=== PATIENT | female | born 1930 | race Caucasian/White ===

== ENCOUNTER 2016-06-27 16:30 | Inpatient (IN) | payer MEDICARE, BC ==
[2016-06-27 16:47] VITALS: BP 137/71
--- NOTE | 2016-06-27 17:18 | ED Physician Chart ---
Chief Complaint/HPI - Patient Information Date Seen:: 06/27/16 Time Seen:: 17:07 Chief Complaint:: NEAR SYNCOPE WITH FALL. COUGH AND DIZZINESS. History of Present Illness:: This 86-year-old female presents with a cough for 1 week and dizziness today with a near syncopal episode. The patient's cough is productive of whitish phlegm and she reports no hemoptysis. Over the past week she has had intermittent fever and chills with no diaphoresis. She is equivocal on whether or not she is having shortness of breath at the present time. She denies any chest pain or abdominal pain. No nausea, vomiting or diarrhea. Allergies:: Allergies Allergy/AdvReac Type Severity Reaction Status Date / Time No Known Allergies Allergy Verified 06/27/16 16:46 Vitals:: Vital Signs - 8 hr 06/27/16 06/27/16 16:47 16:53 Temp 100.4 F HR 72 RR 17 BP 137/71 153/77 O2 Sat % 96 Review of Systems - Review of Systems General/Constitutional: Fever, Chills, Weakness ( the weakness is described as generalized.), No diaphoresis, No loss of appetite Skin: No skin lesions, No rash Head: No headache (no recent head injury.), Light headed Eyes: No loss of vision, No diplopia, Other (patient says she wears reading glasses. 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 There was no. 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 Sclera are not icteric. Skin: No rash, No skin lesions, No ecchymosis, Well hydrated ENMT: External ears, nose nl, TM canals nl, Nasal exam nl, Lips, teeth, gums nl , Oropharynx nl, Tonsils nl Neck: Nontender, Full ROM w/o pain, No JVD, No nuchal rigidity, No mass, No stridor Respiratory: Nl effort/Exclusion (the patient has decreased breath sounds throughout with scattered expiratory wheezing. No rales or rhonchi were appreciated.) Other Respiratory comments:: Patient has decreased lung sounds throughout with scattered expiratory wheezing. Cardio Vascular: RRR, No murmur, gallop, rubs, NL S1 S2 Other Cardio Vascular comments:: Good pulses in all 4 extremities. GI: No tenderness/rebounding/guarding, No organomegaly, No hernia, Normal BS's, Nondistended, No mass/bruits, No McBurney tenderness Other GI comments:: Rectal examination deferred at my discretion. : No CVA tenderness Extremities: No tenderness or effusion, Full ROM, normal strength in all extremities, No edema Neuro/Psych: Alert/oriented, DTR's symmetric, Normal sensory exam, Normal motor strength, Judgement/insight normal, Mood normal Other Neuro/Psych comments:: Patient was not ambulated due to the prior near syncopal episode. Labs/Radiology/EKG Results - Lab Results Results: Laboratory Tests 06/27/16 06/27/16 06/27/16 17:52 17:52 18:21 WBC 18.9 H D RBC 4.11 Hgb 12.0 Hct 34.9 L MCV 84.9 MCH 29.2 MCHC Differential 34.4 RDW 13.3 Plt Count 229 MPV 7.3 Neutrophils % Lymphocytes % Monocytes % Eosinophils % Basophils % Neutrophils (Manual) 84 H Lymphocytes 10 L Monocytes 6 Platelet Estimate ADEQUATE Platelet Morphology NORMAL RBC Morph Micro Appear NORMAL Sodium 133 L Potassium 3.5 Chloride 101 Carbon Dioxide 23.6 Anion Gap 11.9 BUN 19 Creatinine 1.3 H Est GFR ( Amer) TNP Est GFR (Non-Af Amer) TNP BUN/Creatinine Ratio 14.6 Glucose 144 H Hemoglobin A1c % Whole Bld Lactic Acid 1.44 Calcium 8.9 Magnesium Total Bilirubin 0.9 AST 21 ALT 20 Alkaline Phosphatase 48 Ammonia B-Natriuretic Peptide Total Protein 7.0 Albumin 3.7 Globulin 3.3 Albumin/Globulin Ratio 1.1 TSH Urine Source Urine Color Urine Clarity Urine pH Ur Specific Abbott Urine Protein Urine Glucose (UA) Urine Ketones Urine Blood Urine Nitrate Urine Bilirubin Urine Urobilinogen Ur Leukocyte Esterase Urine RBC Urine WBC Ur Epithelial Cells Urine Bacteria Laboratory interpretation: the patient has a marked leukocytosis of 19.8 which was suggestive of acute infection. There was no associated anemia and thrombocytopenia. Electrolytes were within normal parameters except for mild hyponatremia 133. renal function was normal. There was a mild to moderate elevation of the serum glucose in the 140 range. A serum lactic acid level of 1.44 argues against severe sepsis. Single view chest x-ray: no cardiomegaly or CHF. No pneumothorax. No pleural effusion. I did not appreciate any pulmonary infiltrates or regions of consolidation. Subsequent radiology report reported a possible infiltrate us in the right lower lungs on. This did not correspond to any rails or ronchi in the right lower Long zone. EKG INTERPRETATION: In normal sinus rhythm at a rate of 72. Normal NH interval. Normal QR religious. No prolongation of the QT interval. The QRS axis is normal. No Q waves. No ST depression or elevation. Nonspecific flattening of the T waves in the precordial leads. Impression: abnormal EKG. 06/27/16 06/28/16 06/28/16 21:15 04:51 04:51 WBC 13.6 H D RBC 3.90 Hgb 11.3 L Hct 33.3 L MCV 85.2 MCH 29.0 MCHC Differential 34.0 RDW 13.3 Plt Count 193 MPV 7.6 Neutrophils % 84.2 H Lymphocytes % 8.2 L Monocytes % 6.4 Eosinophils % 1.0 Basophils % 0.2 Neutrophils (Manual) Lymphocytes Monocytes Platelet Estimate Platelet Morphology RBC Morph Micro Appear Sodium 139 Potassium 3.2 L Chloride 110 H Carbon Dioxide 24.1 Anion Gap 8.1 BUN 13 Creatinine 0.9 Est GFR ( Amer) TNP Est GFR (Non-Af Amer) TNP BUN/Creatinine Ratio 14.4 Glucose 131 H Hemoglobin A1c % Whole Bld Lactic Acid Calcium 8.4 L Magnesium 2.0 Total Bilirubin AST ALT Alkaline Phosphatase Ammonia B-Natriuretic Peptide Total Protein Albumin Globulin Albumin/Globulin Ratio TSH Urine Source CLEAN C Urine Color YELLOW Urine Clarity CLEAR Urine pH 7.0 Ur Specific Abbott 1.010 Urine Protein NEGATIVE Urine Glucose (UA) NEGATIVE Urine Ketones NEGATIVE Urine Blood NEGATIVE Urine Nitrate NEGATIVE Urine Bilirubin NEGATIVE Urine Urobilinogen 0.2 Ur Leukocyte Esterase NEGATIVE Urine RBC NONE SEEN Urine WBC 0-2 Ur Epithelial Cells RARE Urine Bacteria NONE SEEN 06/28/16 06/28/16 04:51 04:51 WBC RBC Hgb Hct MCV MCH MCHC Differential RDW Plt Count MPV Neutrophils % Lymphocytes % Monocytes % Eosinophils % Basophils % Neutrophils (Manual) Lymphocytes Monocytes Platelet Estimate Platelet Morphology RBC Morph Micro Appear Sodium Potassium Chloride Carbon Dioxide Anion Gap BUN Creatinine Est GFR ( Amer) Est GFR (Non-Af Amer) BUN/Creatinine Ratio Glucose Hemoglobin A1c % 6.1 H Whole Bld Lactic Acid Calcium Magnesium Total Bilirubin AST ALT Alkaline Phosphatase Ammonia 40 B-Natriuretic Peptide 119.0 H Total Protein Albumin Globulin Albumin/Globulin Ratio TSH 0.64 Urine Source Urine Color Urine Clarity Urine pH Ur Specific Abbott Urine Protein Urine Glucose (UA) Urine Ketones Urine Blood Urine Nitrate Urine Bilirubin Urine Urobilinogen Ur Leukocyte Esterase Urine RBC Urine WBC Ur Epithelial Cells Urine Bacteria Assessment - Assessment General Assessment: CASE SUMMARY: this 86-year-old female who has no history of chronic disease presents with a one-week history of new onset of cough productive of white sputum. She reports having had fever and chills the day prior to admission. At the time of admission For temperature was 100.4. She reported having a near syncopal episode which caused her to fall with no injury. The episode occurred after a paroxysm of coughing. On physical examination the patient was awake and alert with no evidence of head trauma. She had prominent arcus of both eyes. The ears eyes nose and throat were otherwise unremarkable. There was no JVD present. On examination the lungs showed diffuse decreased breath sounds with occasional scattered wheezes. No rales or rhonchi were appreciated. There was no peripheral edema and no-fault neurologic deficit. Chest x-ray showed no cardiomegaly for CHF. I did not appreciate any pulmonary infiltrates or regions of consolidation. Laboratory studies showed a white count of 18.9 thousand. The other lab values were either normal or mild deviations which did not have any clinical implications. Lactic acid was in the normal range. Patient had no focal neurologic deficit. With the near syncopal episode she was treated with 2 L of normal saline to correct any insufficiency in hydration. Due to the patient 's age and somewhat bizarre presentation, I contacted Dr. Bang and he agreed to admit the patient for further observation and diagnostic testing. Admitted in stable condition. MDM DDX NEAR SYNCOPE EPISODE: NOT CVA Based on history and examination. NOT Electrolyte imbalance based on laboratory studies. NOT Heart block based on EKG findings. NOT Severe anemia due to active bleeding. This was based on history, physical examination and laboratory studies. In retrospect I suspect the patient had pneumonia which I didn't appreciate on chest x-ray. ED Septic Shock - . Is Septic Shock (SBP<90, OR Lactate>4 mmol\L) present?: No - <6hrs of presentation: Vital Signs: Vital Signs - 8 hr 06/27/16 06/27/16 16:47 16:53 Temp 100.4 F HR 72 RR 17 BP 137/71 153/77 O2 Sat % 96 Reassessment (Disposition) - Reassessment Reassessment Condition:: Improved - Diagnosis Diagnosis:: NEAR SYNCOPAL EPISODE, COUGH, LEUKOCYTOSIS. ED Discharge Plan - Patient Disposition Admit/Discharge/Transfer: Acute Care w/in this hosp
[2016-06-27] MEDS ORDERED: Sodium Chloride 0.9% 1,000 ML IV ONE ×2 (17:44→19:45)
[2016-06-27 18:05] LABS: HEMATOCRIT 34.9 % (35.0-45.0); MEAN CELL VOLUME 84.9 fl (81-100); MEAN CORPUSCULAR HEMOGLOBIN 29.2 pg (27.0-31.0); MEAN CORPUSCULAR HGB CONC 34.4 pg (28.0-36.0); MEAN PLATELET VOLUME 7.3 fl; PLATELET COUNT 229 Th/cmm (150-400); RED BLOOD COUNT 4.11 Mil/cmm (3.80-5.20); RED CELL DISTRIBUTION WIDTH 13.3 % (11.5-20.0)
[2016-06-27 18:12] LABS: WHITE BLOOD COUNT 18.9 Th/cmm (4.8-10.8)
[2016-06-27 18:15] LABS: ALB/GLOB RATIO 1.1 (1.0-1.8); ALKALINE PHOSPHATASE 48 U/L (34-104); ANION GAP 11.9 (7.0-16.0); BILIRUBIN,TOTAL 0.9 mg/dL (0.3-1.0); BUN - UREA NITROGEN 19 mg/dL (7-25); BUN/CREATININE RATIO 14.6; CALCIUM SERUM 8.9 mg/dL (8.6-10.3); CARBON DIOXIDE 23.6 mEq/L (21.0-31.0); CHLORIDE 101 mEq/L (98-107); CREATININE - SERUM 1.3 mg/dL (0.6-1.2); GLUCOSE 144 mg/dL (70-105); POTASSIUM SERUM 3.5 mEq/L (3.5-5.1); SGOT 21 U/L (13-39); SGPT/ALT 20 U/L (7-52); SODIUM SERUM 133 mEq/L (136-145)
[2016-06-27 18:28] LABS: NEUTROPHILS 84 % (40-80); PLATELET ESTIMATE ADEQUATE (NORMAL); PLATELET MORPHOLOGY NORMAL (NORMAL); TOTAL CELLS COUNTED 100
[2016-06-27] MEDS ORDERED: Ipratropium Neb 0.5 mg/2.5 mL UD HHN PRN (20:25)
--- NOTE | 2016-06-27 20:36 | Internal Medicine Prog Note ---
Internal Medicine Subjective - Subjective Patient seen and examined:: other ([id number]) Internal Medicine Objective - Results Result Diagrams: 06/27/16 17:52 06/27/16 17:52 Recent Labs: Laboratory Last Values WBC 18.9 Th/cmm (4.8-10.8) H D 06/27/16 17:52 RBC 4.11 Mil/cmm (3.80-5.20) 06/27/16 17:52 Hgb 12.0 gm/dL (11.7-16.1) 06/27/16 17:52 Hct 34.9 % (35.0-45.0) L 06/27/16 17:52 MCV 84.9 fl (81-100) 06/27/16 17:52 MCH 29.2 pg (27.0-31.0) 06/27/16 17:52 MCHC Differential 34.4 pg (28.0-36.0) 06/27/16 17:52 RDW 13.3 % (11.5-20.0) 06/27/16 17:52 Plt Count 229 Th/cmm (150-400) 06/27/16 17:52 MPV 7.3 fl 06/27/16 17:52 Neutrophils (Manual) 84 % (40-80) H 06/27/16 17:52 Lymphocytes 10 % (20-50) L 06/27/16 17:52 Monocytes 6 % (2-10) 06/27/16 17:52 Platelet Estimate ADEQUATE (NORMAL) 06/27/16 17:52 Platelet Morphology NORMAL (NORMAL) 06/27/16 17:52 RBC Morph Micro Appear NORMAL (NORMAL) 06/27/16 17:52 Sodium 133 mEq/L (136-145) L 06/27/16 17:52 Potassium 3.5 mEq/L (3.5-5.1) 06/27/16 17:52 Chloride 101 mEq/L (98-107) 06/27/16 17:52 Carbon Dioxide 23.6 mEq/L (21.0-31.0) 06/27/16 17:52 Anion Gap 11.9 (7.0-16.0) 06/27/16 17:52 BUN 19 mg/dL (7-25) 06/27/16 17:52 Creatinine 1.3 mg/dL (0.6-1.2) H 06/27/16 17:52 Est GFR ( Amer) TNP 06/27/16 17:52 Est GFR (Non-Af Amer) TNP 06/27/16 17:52 BUN/Creatinine Ratio 14.6 06/27/16 17:52 Glucose 144 mg/dL (70-105) H 06/27/16 17:52 Whole Bld Lactic Acid 1.44 mmol/L (0.60-1.99) 06/27/16 18:21 Calcium 8.9 mg/dL (8.6-10.3) 06/27/16 17:52 Total Bilirubin 0.9 mg/dL (0.3-1.0) 06/27/16 17:52 AST 21 U/L (13-39) 06/27/16 17:52 ALT 20 U/L (7-52) 06/27/16 17:52 Alkaline Phosphatase 48 U/L (34-104) 06/27/16 17:52 Total Protein 7.0 gm/dL (6.0-8.3) 06/27/16 17:52 Albumin 3.7 gm/dL (3.7-5.3) 06/27/16 17:52 Globulin 3.3 gm/dL 06/27/16 17:52 Albumin/Globulin Ratio 1.1 (1.0-1.8) 06/27/16 17:52 - Physical Exam Vitals and I&O: Vital Signs Temp 99.5 F 06/27/16 19:50 Pulse 70 06/27/16 19:50 Resp 20 06/27/16 19:50 BP 147/68 06/27/16 19:50 Pulse Ox 95 06/27/16 19:50 Intake & Output 06/27/16 06/27/16 06/28/16 06:59 18:59 06:59 Intake Total 1000 Balance 1000 Intake: Intake, IV Amount 1000 Sodium Chloride 0.9% 1, 1000 000 ml @ Wide Open IV . Q0M ONE Rx#:[id number] Active Medications: Current Medications Acetaminophen (Tylenol) 650 mg PO Q4HR PRN PRN Reason: Pain or Fever >101 Stop: 08/26/16 20:24 Albuterol Sulfate (Albuterol 2.5mg/3ml Neb Ud) 2.5 mg HHN QID JUDE Stop: 08/26/16 20:59 Ascorbic Acid (Vitamin C) 500 mg PO DAILY [facility] Stop: 08/27/16 08:59 Clonidine HCl (Catapres) 0.1 mg PO Q6HR PRN PRN Reason: SBP GREATER THAN 160 Stop: 08/26/16 20:24 Guaifenesin (Robitussin) 200 mg PO Q4HR PRN PRN Reason: Cough or Congestion Stop: 08/26/16 20:24 Heparin Sodium (Porcine) (Heparin) 5,000 units SUBQ Q12HR JUDE Stop: 08/26/16 20:59 Sodium Chloride (Nacl 0.9%) 1,000 mls @ 999 mls/hr IV .Q1H1M ONE Stop: 06/27/16 20:45 Last Admin: 06/27/16 19:52 Dose: 999 mls/hr Cefepime HCl 1 gm/ Dextrose 50 mls @ 100 mls/hr IV Q12H [facility] Stop: 08/26/16 20:29 Dextrose/Sodium Chloride (D5-0.45ns) 1,000 mls @ 75 mls/hr IV .[id number] [facility] Stop: 08/26/16 20:29 Ipratropium [place] (Atrovent Neb 0.5mg/2.5ml) 0.5 mg IH Q2HR PRN PRN Reason: Shortness of Breath or Wheeze Stop: 08/26/16 20:24 Miscellaneous (Vitamin B Complex [Vitamin B Complex]) 1 each PO DAILY [facility] Stop: 08/27/16 08:59 Miscellaneous (Multivitamin/Iron/Folic Acid [Centrum Complete Multivit Tab]) 1 tab PO DAILY [facility] Stop: 08/27/16 08:59 Ondansetron HCl (Zofran) 4 mg IV Q8H PRN PRN Reason: Nausea / Vomiting Stop: 08/26/16 20:24 Zolpidem Tartrate (Ambien) 10 mg PO HS PRN PRN Reason: Insomnia Stop: 08/26/16 20:24 - Procedures Procedures: Procedures Procedure Code Date INJECT/INFUSE NEC 99.29 05/28/14 Internal Medicine Assmt/Plan - Assessment Assessment: fever sepsis syncope leukocytosis h low na ri
[2016-06-27] MEDS ORDERED: Albuterol Nebulizer 2.5mg/3mL HHN SCH (21:00)
[2016-06-27 21:38] LABS: URINE BILIRUBIN NEGATIVE (NEGATIVE); URINE BLOOD NEGATIVE (NEGATIVE); URINE COLOR YELLOW; URINE GLUCOSE (UA) NEGATIVE (NEGATIVE); URINE KETONE NEGATIVE (NEGATIVE); URINE PROTEIN NEGATIVE (NEGATIVE); URINE UROBILINOGEN 0.2 E.U./dL (0.2 - 1.0)
[2016-06-27 21:39] LABS: URINE BACTERIA NONE SEEN /hpf (NONE SEEN); URINE EPITHELIAL CELLS RARE /lpf (FEW); URINE RBC NONE SEEN /hpf (0-5); URINE WBC 0-2 /hpf (0-5)
[2016-06-27] MEDS: D5-0.45NS 1,000 ML IV SCH (22:00)
--- NOTE | 2016-06-27 23:47 | Admit Criteria Form ---
Admit Criteria Forms - Admit Criteria Diagnosis: SEPSIS and OTHER FEBRILE ILLNESS, W/O FOCAL INFECTION Clinical Indications for Admission to Inpatient Care ( Place 'X' for any and all applicable criteria): Admission is indicated for ANY ONE of the following (1)(2)(3)(4): [ ] I. Bacteremia [ ]II. Suspected or identified specific infection requiring hospitalization (eg, meningitis, endocarditis) [ ]III. Hemodynamic instability [ ]IV. Altered mental status [ ]V. Failure or unavailability of outpatient antimicrobial treatment [ ]. Hypoxemia [ ]VII. Seizures [ ]VIII. High-risk febrile neutropenia [ ]IX. Need for parenteral antibiotic in patient who is likely to abuse vascular access device (eg, injection drug user) [A](7) [ ]X. Temperature greater than 104.9 degrees F (40.5 degrees C) (oral) [X]XI. Inpatient admission required rather than observation care because of ANY ONE of the following: [ ]1) Specific infection identified that is too severe for outpatient treatment or observation care trial [ ]2) Metabolic disorder (eg, hypoglycemia, hyperglycemia, metabolic acidosis) that is severe or persistent [ ]3) Temperature greater than 103.1 degrees F (39.5 degrees C) ( oral) that is not responsive to observation care treatment [ ]4) IV fluid to replace significant ongoing (eg, for over 24 hours) losses (> 3 L/m2 per day) [ ]5) Supplemental oxygen or respiratory treatments for over 24 hours that is performable only in acute inpatient setting [ ]6) Parenteral nutrition regimen need that must be implemented on inpatient basis [ ]7) Strict or protective (eg, laminar flow) isolation [X]8) Other condition, treatment or monitoring requiring inpatient admission Extended stay beyond goal length of stay may be needed for(1)(3) [ ]a) Sepsis or septic shock(22) [ ]b) Positive blood cultures [ ]c) Insufficient oral intake [ ]d) High-risk febrile neutropenia(29)(30) [ ]e) Continued fever and clinical instability [ ]f) Clinically active comorbid illness (e.g,heart failure, renal failure , diabetes) The original [employer] content created by [employer] has been revised. The portions of the content which have been revised are identified through the use of italic text or in bold, and [facility] has neither reviewed nor approved the modified material. All other unmodified content is copyright [facility]. Please see references footnoted in the original [facility] 2016 Admit Criteria Met?: Yes
[2016-06-28] MEDS: guaiFENesin 200 MG/10 ML UDC PO PRN ×2 (05:03→21:59)
[2016-06-28 05:24] LABS: % BASOPHILS 0.2 % (0.0-2.0); % LYMPHOCYTES 8.2 % (20.0-50.0); % MONOCYTES 6.4 % (2.0-10.0); % NEUTROPHILS 84.2 % (40.0-80.0); HEMATOCRIT 33.3 % (35.0-45.0); HEMOGLOBIN 11.3 gm/dL (11.7-16.1); MEAN CELL VOLUME 85.2 fl (81-100); MEAN PLATELET VOLUME 7.6 fl; NEUTROPHILE ABSOLUTE 11.5 Th/cmm (1.8-8.0); PLATELET COUNT 193 Th/cmm (150-400); RED CELL DISTRIBUTION WIDTH 13.3 % (11.5-20.0)
[2016-06-28 05:31] LABS: WHITE BLOOD COUNT 13.6 Th/cmm (4.8-10.8)
[2016-06-28 05:40] LABS: ANION GAP 8.1 (7.0-16.0); BUN - UREA NITROGEN 13 mg/dL (7-25); BUN/CREATININE RATIO 14.4; CALCIUM SERUM 8.4 mg/dL (8.6-10.3); CARBON DIOXIDE 24.1 mEq/L (21.0-31.0); CHLORIDE 110 mEq/L (98-107); CREATININE - SERUM 0.9 mg/dL (0.6-1.2); GLUCOSE 131 mg/dL (70-105); POTASSIUM SERUM 3.2 mEq/L (3.5-5.1); SODIUM SERUM 139 mEq/L (136-145)
[2016-06-28 06:29] LABS: TSH 0.64 uIU/ml (0.34-5.60)
[2016-06-28] MEDS: Multivitamin Tab PO SCH (08:50)
[2016-06-28] MEDS ORDERED: MULTIVITAMIN PO SCH (09:00)
[2016-06-28] MEDS ORDERED: IRON PO SCH (09:00)
[2016-06-28] MEDS ORDERED: [UNRECOGNIZED DRUG - OTHER] PO SCH (09:00)
[2016-06-28] MEDS ORDERED: FOLIC ACID PO SCH (09:00)
[2016-06-28] MEDS ORDERED: VITAMIN B COMPLEX PO SCH (09:00)
--- NOTE | 2016-06-28 09:41 | Diagnostic Imaging Report ---
Portable chest x-ray HISTORY: Cough Allowing for portable technique in a poor inspiration, the heart size is normal. Faint density noted in the right lung base. Faint infiltrate cannot be excluded. Clinical correlation needed. No hilar or mediastinal abnormalities. Degenerative changes seen throughout the spine. IMPRESSION: 1. Faint density right lung base. Mild infiltrate is difficult to exclude. Clinical correlation needed.
[2016-06-28] MEDS: Albuterol Nebulizer 2.5mg/3mL HHN SCH ×3 (10:54→20:12)
[2016-06-28] MEDS ORDERED: Potassium Chloride 20 mEq ER Tab PO ONE (14:35)
--- NOTE | 2016-06-28 14:38 | Internal Medicine Prog Note ---
Internal Medicine Subjective - Subjective Patient seen and examined:: with staff, chart reviewed Patient is:: awake, verbal, interactive Patient Complaints of:: congestion Per staff patient is:: no adverse event, no episodes of fall, poor appetite Internal Medicine Objective - Results Result Diagrams: 06/28/16 04:51 06/28/16 04:51 Recent Labs: Laboratory Last Values WBC 13.6 Th/cmm (4.8-10.8) H D 06/28/16 04:51 RBC 3.90 Mil/cmm (3.80-5.20) 06/28/16 04:51 Hgb 11.3 gm/dL (11.7-16.1) L 06/28/16 04:51 Hct 33.3 % (35.0-45.0) L 06/28/16 04:51 MCV 85.2 fl (81-100) 06/28/16 04:51 MCH 29.0 pg (27.0-31.0) 06/28/16 04:51 MCHC Differential 34.0 pg (28.0-36.0) 06/28/16 04:51 RDW 13.3 % (11.5-20.0) 06/28/16 04:51 Plt Count 193 Th/cmm (150-400) 06/28/16 04:51 MPV 7.6 fl 06/28/16 04:51 Neutrophils % 84.2 % (40.0-80.0) H 06/28/16 04:51 Lymphocytes % 8.2 % (20.0-50.0) L 06/28/16 04:51 Monocytes % 6.4 % (2.0-10.0) 06/28/16 04:51 Eosinophils % 1.0 % (0.0-5.0) 06/28/16 04:51 Basophils % 0.2 % (0.0-2.0) 06/28/16 04:51 Neutrophils (Manual) 84 % (40-80) H 06/27/16 17:52 Lymphocytes 10 % (20-50) L 06/27/16 17:52 Monocytes 6 % (2-10) 06/27/16 17:52 Platelet Estimate ADEQUATE (NORMAL) 06/27/16 17:52 Platelet Morphology NORMAL (NORMAL) 06/27/16 17:52 RBC Morph Micro Appear NORMAL (NORMAL) 06/27/16 17:52 Sodium 139 mEq/L (136-145) 06/28/16 04:51 Potassium 3.2 mEq/L (3.5-5.1) L 06/28/16 04:51 Chloride 110 mEq/L (98-107) H 06/28/16 04:51 Carbon Dioxide 24.1 mEq/L (21.0-31.0) 06/28/16 04:51 Anion Gap 8.1 (7.0-16.0) 06/28/16 04:51 BUN 13 mg/dL (7-25) 06/28/16 04:51 Creatinine 0.9 mg/dL (0.6-1.2) 06/28/16 04:51 Est GFR ( Amer) TNP 06/28/16 04:51 Est GFR (Non-Af Amer) TNP 06/28/16 04:51 BUN/Creatinine Ratio 14.4 06/28/16 04:51 Glucose 131 mg/dL (70-105) H 06/28/16 04:51 Hemoglobin A1c % 6.1 % (4.0-6.0) H 06/28/16 04:51 Whole Bld Lactic Acid 1.44 mmol/L (0.60-1.99) 06/27/16 18:21 Calcium 8.4 mg/dL (8.6-10.3) L 06/28/16 04:51 Magnesium 2.0 mg/dL (1.9-2.7) 06/28/16 04:51 Total Bilirubin 0.9 mg/dL (0.3-1.0) 06/27/16 17:52 AST 21 U/L (13-39) 06/27/16 17:52 ALT 20 U/L (7-52) 06/27/16 17:52 Alkaline Phosphatase 48 U/L (34-104) 06/27/16 17:52 Ammonia 40 umol/L (16-53) 06/28/16 04:51 B-Natriuretic Peptide 119.0 pg/mL (5.0-100.0) H 06/28/16 04:51 Total Protein 7.0 gm/dL (6.0-8.3) 06/27/16 17:52 Albumin 3.7 gm/dL (3.7-5.3) 06/27/16 17:52 Globulin 3.3 gm/dL 06/27/16 17:52 Albumin/Globulin Ratio 1.1 (1.0-1.8) 06/27/16 17:52 TSH 0.64 uIU/ml (0.34-5.60) 06/28/16 04:51 Urine Source CLEAN C 06/27/16 21:15 Urine Color YELLOW 06/27/16 21:15 Urine Clarity CLEAR (CLEAR) 06/27/16 21:15 Urine pH 7.0 06/27/16 21:15 Ur Specific [place] 1.010 (1.005-1.030) 06/27/16 21:15 Urine Protein NEGATIVE mg/dL (NEGATIVE) 06/27/16 21:15 Urine Glucose (UA) NEGATIVE mg/dL (NEGATIVE) 06/27/16 21:15 Urine Ketones NEGATIVE mg/dL (NEGATIVE) 06/27/16 21:15 Urine Blood NEGATIVE (NEGATIVE) 06/27/16 21:15 Urine Nitrate NEGATIVE (NEGATIVE) 06/27/16 21:15 Urine Bilirubin NEGATIVE (NEGATIVE) 06/27/16 21:15 Urine Urobilinogen 0.2 E.U./dL (0.2 - 1.0) 06/27/16 21:15 Ur Leukocyte Esterase NEGATIVE (NEGATIVE) 06/27/16 21:15 Urine RBC NONE SEEN /hpf (0-5) 06/27/16 21:15 Urine WBC 0-2 /hpf (0-5) 06/27/16 21:15 Ur Epithelial Cells RARE /lpf (FEW) 06/27/16 21:15 Urine Bacteria NONE SEEN /hpf (NONE SEEN) 06/27/16 21:15 - Physical Exam Vitals and I&O: Vital Signs Temp 99.5 F 06/28/16 04:49 Pulse 65 06/28/16 14:08 Resp 18 06/28/16 14:08 BP 143/72 06/28/16 04:49 Pulse Ox 94 06/28/16 14:08 Intake & Output 06/27/16 06/28/16 06/28/16 18:59 06:59 18:59 Intake Total 1999 Balance 1999 Weight (lbs) 55.883 kg Intake: Intake, IV Amount 2000 Sodium Chloride 0.9% 1, 1000 000 ml @ 999 mls/hr IV . Q1H1M [facility] Rx#:[id number] Sodium Chloride 0.9% 1, 1000 000 ml @ Wide Open IV . Q0M [facility] Rx#:[id number] Active Medications: Current Medications Acetaminophen (Tylenol) 650 mg PO Q4HR PRN PRN Reason: Pain or Fever >101 Stop: 08/26/16 20:24 Albuterol Sulfate (Albuterol 2.5mg/3ml Neb Ud) 2.5 mg HHN QIDRT [facility] Stop: 08/26/16 20:59 Last Admin: 06/28/16 14:08 Dose: 2.5 mg Ascorbic Acid (Vitamin C) 500 mg PO DAILY [facility] Stop: 08/27/16 08:59 Last Admin: 06/28/16 08:50 Dose: 500 mg Clonidine HCl (Catapres) 0.1 mg PO Q6HR PRN PRN Reason: SBP GREATER THAN 160 Stop: 08/26/16 20:24 Guaifenesin (Robitussin) 200 mg PO Q4HR PRN PRN Reason: Cough or Congestion Stop: 08/26/16 20:24 Last Admin: 06/28/16 05:03 Dose: 200 mg Heparin Sodium (Porcine) (Heparin) 5,000 units SUBQ Q12HR [facility] Stop: 08/26/16 20:59 Last Admin: 06/28/16 08:50 Dose: 5,000 units Cefepime HCl 1 gm/ Dextrose 50 mls @ 100 mls/hr IV Q12H [facility] Stop: 08/26/16 20:59 Last Admin: 06/28/16 09:42 Dose: 100 mls/hr Dextrose/Sodium Chloride (D5-0.45ns) 1,000 mls @ 75 mls/hr IV .[id number] [facility] Stop: 08/26/16 20:29 Last Admin: 06/27/16 22:00 Dose: 75 mls/hr Ipratropium [place] (Atrovent Neb 0.5mg/2.5ml) 0.5 mg HHN Q2HR PRN PRN Reason: Shortness of Breath or Wheeze Stop: 08/26/16 20:24 Multivitamins/Vitamin C (Theragran) 1 tab PO DAILY [facility] Stop: 08/27/16 08:59 Last Admin: 06/28/16 08:50 Dose: 1 tab Ondansetron HCl (Zofran) 4 mg IV Q8H PRN PRN Reason: Nausea / Vomiting Stop: 08/26/16 20:24 Zolpidem Tartrate (Ambien) 10 mg PO HS PRN PRN Reason: Insomnia Stop: 08/26/16 20:24 General: lethargic, alert HEENT: NC/AT, PERRLA Neck: Supple, No JVD Lungs: congested, wheezing, rales Cardiovascular: RRR, Normal S1, Normal S2 Abdomen: soft non-tender, globular, positive bowel sound Extremities: excoriation Neurological: no change - Procedures Procedures: Procedures Procedure Code Date INJECT/INFUSE NEC 99.29 05/28/14 Internal Medicine Assmt/Plan - Assessment Assessment: fever sepsis syncope leukocytosis h low na ri - Plan Plan: cont on iv abx check bc and sputum check cxr correct labx dw pt , family and rn cpm Nutritional Asmnt/Malnutr-PDOC - Dietary Evaluation Malnutrition Findings (Please click <Entered> for more info): Nutritional Asmnt/Malnutrition Start: 06/28/16 12: 04 Text: Status: Complete Freq: Document 06/28/16 12:04 [facility] (Rec: 06/28/16 12:12 [facility] [id number]) Nutritional Asmnt/Malnutrition Patient General Information Nutritional Screening High Risk Screening Diagnosis Sepsis, fever, syncope (per reason for visit) Pertinent Medical Hx/Surgical Hx 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 Pt was awake and alert during time of visit; pt is a good historian . RD offered diet education but pt declined at this time. Pt appears well nourished with no signs of muscle or fat depletion. RD weighed pt via bedscale. Upward wt trend, wt gain of 6# in the last year. Pt surprised but also admits she has been snacking a lot. Current Diet Order/ Nutrition Support Low sodium Patient / S.O Can Pertinent Medications Vitamin C, Cefepime, D5-0.45 ns, Theragran, Zofran Pertinent Labs (06/28) Glucose (fasting) 131H, A1C 6.1H Nutritional Hx/Data Height 1.45 m Height (Calculated Centimeters) 144.8 Current Weight (lbs) 55.883 kg Weight (Calculated Kilograms) 55.9 Weight (Calculated Grams) 31686.6 Usual body Weight (lbs) 117 % Usual Body Weight 105 Recent Weight Change Yes Weight Status Overweight GI Symptoms GI Symptoms None Food Allergies No Cultural/Ethnic/Roman Catholic Belief No cultural preferences provided but pt reports trying to eat less meat and more salads. Usual diet at home Low fat/low sodium diet, 3 meals/day with snacks Skin Integrity/Comment: Luis 20. Skin intact. Current %PO Good (75-100%) Estimated Nutritional Goals BEE in Kcals: Using Current wt Calories/Kcals/Kg Based on CBW 56 kg with consideration of wt gain, sepsis Kcals Calculated 4923-6565 kcals/day (28-33 kcals/kg) Protein: Using Current wt Protein g/kg: Based on CBW 56 kg with consideration of wt gain, sepsis Protein Calculated 56-70 gm/day (1-1.25 gm/kg) Fluid: ml 1559-3845 ml/day (30-35 ml/kg CBW) Nutritional Problem 1. Problem Problem Overweight related to Etiology increased energy intake vs energy expenditure as evidenced by Signs/Symptoms: overwt BMI 26.7 kg/m2 and unintentional wt gain of 6#. Malnutrition Alert Is there a minimum of two criteria No selected? Query Text:Check all the applicable criteria. A minimum of two criteria are recommended for diagnosis of either severe or non-severe malnutrition. Malnutrition Related to Morbid Obesity Malnutrition related to morbid obesity No Intervention/Recommendation Comments 1. Continue with current diet. Diet and PO intake is adequate to meet estimated nutritional needs. 2. Educate on wt management, as needed. Expected Outcomes/Goals Expected Outcomes/Goals Have pt meet at least 75% of estimated nutritional needs for stable wt. Physician Parameters for PEM Serum Albumin (g/dl) 3.5 - 5.0 (Normal) 06/28/16 12:12 Dietitian Notes by Nelia Johnson Nutrition Note Initial Nutrition Assessment completed by Nelia Johnson on 06/28/16. Please refer to nutrition assessment under Patient Care tab of EMR. Nutrition Interventions: 1. Continue with current diet. Diet and PO intake is adequate to meet estimated nutritional needs. 2. Educate on wt management, as needed. F/U in 3-5 days as Moderate risk, 07/01-07/03. Initialized on 06/28/16 12:12 - END OF NOTE
[2016-06-28] MEDS: D5-0.45NS 1,000 ML IV SCH (18:19)
--- NOTE | 2016-06-29 01:14 | History & Physical ---
INTERNAL MEDICINE HISTORY AND PHYSICAL CHIEF COMPLAINT: Fainting spell and fever. HISTORY OF PRESENT ILLNESS: The patient is an 86-year-old female without significant past medical history with severe problems at house related to fever and feeling sweaty and dizzy. The patient was coughing for the last 3 days, reported subjective fever. The patient had a coughing spell this afternoon, almost fainted. The patient was brought in by family, and while in the ER, by Dr. Heller noted to have a high white count. The patient admitted for further management. PAST MEDICAL HISTORY: As mentioned in history of present illness. PAST SURGICAL HISTORY: ____ breast biopsy in the past. ALLERGIES: No known drug allergies. MEDICATIONS: She is taking vitamin C, vitamin B, as well as multivitamin. FAMILY HISTORY: Noncontributory. SOCIAL HISTORY: Nonsmoker and nondrinker. No intravenous drug use. REVIEW OF SYSTEMS: CONSTITUTIONAL: Complains of not feeling well. Complains of being weak. HEENT: Complaining of sore throat and coughing. LUNGS: Diagnosed with no COPD or asthma. HEART: Denies hypertension or coronary artery disease. The patient is noted to have elevated blood pressure in the emergency room. ABDOMEN: No nausea, vomiting or abdominal pain. GENITOURINARY: The patient denies any increased frequency or dysuria. NEUROLOGIC: The patient with loss of consciousness. PSYCHIATRIC: She has depression. PHYSICAL EXAMINATION: VITAL SIGNS: Blood pressure 115/50, respiration 16, pulse 95, and temperature 100.4. GENERAL: Elderly female who appears her stated age. NECK: Supple. LUNGS: Equal breath sounds, a few rhonchi. HEART: Regular rate and rhythm with systolic ejection murmur. ABDOMEN: Soft and nontender. EXTREMITIES: Positive excoriations. NEUROLOGIC: Limited. LABORATORY DATA: WBC 18.9, hemoglobin 12.0, and platelets 229,000. Sodium 132, potassium 3.5, BUN 19, creatinine 1.3, and blood sugar 144. ASSESSMENT AND PLAN: 1. Fever. 2. Sepsis. 3. Syncope. 4. Leukocytosis. 5. Hyponatremia. 6. Renal insufficiency/dehydration. 7. Hyperglycemia. PLAN: We will continue the patient on IV hydration. We will monitor for any signs or symptoms of fluid overload. We will follow the patient's blood cultures, sputum cultures, and C and S. We will review the patient's chest x-ray. We will correct the patient's electrolyte abnormalities. We will monitor the patient's renal function. We will check hemoglobin A1c. We will provide the patient oxygen and now bronchodilator treatment. We will check the patient's carotid as well as 2D echo. We will admit the patient to the telemetry. JOB# [id number]
[2016-06-29 06:20] LABS: % BASOPHILS 0.3 % (0.0-2.0); % EOSINOPHILS 1.7 % (0.0-5.0); % LYMPHOCYTES 10.2 % (20.0-50.0); % MONOCYTES 6.8 % (2.0-10.0); HEMATOCRIT 34.8 % (35.0-45.0); HEMOGLOBIN 11.8 gm/dL (11.7-16.1); MEAN CORPUSCULAR HGB CONC 33.8 pg (28.0-36.0); MEAN PLATELET VOLUME 7.8 fl; NEUTROPHILE ABSOLUTE 12.9 Th/cmm (1.8-8.0); PLATELET COUNT 218 Th/cmm (150-400); RED BLOOD COUNT 4.05 Mil/cmm (3.80-5.20); RED CELL DISTRIBUTION WIDTH 13.7 % (11.5-20.0); WHITE BLOOD COUNT 15.9 Th/cmm (4.8-10.8)
[2016-06-29] MEDS: guaiFENesin 200 MG/10 ML UDC PO PRN ×2 (06:26→21:24)
[2016-06-29 06:48] LABS: ANION GAP 9.9 (7.0-16.0); BUN - UREA NITROGEN 10 mg/dL (7-25); BUN/CREATININE RATIO 11.1; CALCIUM SERUM 8.9 mg/dL (8.6-10.3); CARBON DIOXIDE 24.4 mEq/L (21.0-31.0); CHLORIDE 107 mEq/L (98-107); CREATININE - SERUM 0.9 mg/dL (0.6-1.2); GLUCOSE 111 mg/dL (70-105); POTASSIUM SERUM 3.3 mEq/L (3.5-5.1); SODIUM SERUM 138 mEq/L (136-145)
[2016-06-29] MEDS: Albuterol Nebulizer 2.5mg/3mL HHN SCH ×3 (07:16→15:05)
[2016-06-29] MEDS: Multivitamin Tab PO SCH (09:11)
--- NOTE | 2016-06-29 09:17 | Diagnostic Imaging Report ---
Portable chest x-ray HISTORY: Pneumonia Compared with prior exam of June 27, 2016, exam is somewhat limited due to patient motion and underpenetration. There appears to be persistent faint density in the right lung base. Mild infiltrate cannot be excluded. Clinical correlation and follow-up recommended. IMPRESSION: 1. Suboptimal exam associated with underpenetration and patient motion 2. Suggestion of persistent faint infiltrate within the right lung base. Mild infiltrate cannot be excluded.
[2016-06-29] MEDS ORDERED: Potassium Chloride 20 mEq ER Tab PO ONE (09:21)
--- NOTE | 2016-06-29 09:23 | Diagnostic Imaging Report ---
Bilateral carotid Doppler ultrasound exam HISTORY: Syncope Sonographic sector images were obtained through the carotid bifurcation regions bilaterally. Associated Doppler data was obtained. Exam the right side demonstrates generalized intimal thickening throughout the bifurcation region. Mild focal plaque is noted in the common carotid artery. No significant narrowing or stenosis. Antegrade vertebral artery flow. Mild increase in velocity noted within the proximal common carotid artery and at the origin of the right external carotid artery. The ICC/CCA flow ratio equals 0.3). The left side demonstrates generalized intimal thickening. No significant narrowing or stenosis. Antegrade vertebral artery flow. Velocities and flow ratios are normal (ICC/CCA equals 1.4). IMPRESSION: 1. Mild atherosclerotic changes slightly greater on the right side. These do not appear to be hemodynamically significant.
--- NOTE | 2016-06-29 12:07 | Internal Medicine Prog Note ---
Internal Medicine Subjective - Subjective Service Date: 06/29/16 (awake, alert, feels congested. ) Patient seen and examined:: with staff Internal Medicine Objective - Results Result Diagrams: 06/29/16 05:50 06/29/16 05:50 Recent Labs: Laboratory Last Values WBC 15.9 Th/cmm (4.8-10.8) H 06/29/16 05:50 RBC 4.05 Mil/cmm (3.80-5.20) 06/29/16 05:50 Hgb 11.8 gm/dL (11.7-16.1) 06/29/16 05:50 Hct 34.8 % (35.0-45.0) L 06/29/16 05:50 MCV 86.0 fl (81-100) 06/29/16 05:50 MCH 29.0 pg (27.0-31.0) 06/29/16 05:50 MCHC Differential 33.8 pg (28.0-36.0) 06/29/16 05:50 RDW 13.7 % (11.5-20.0) 06/29/16 05:50 Plt Count 218 Th/cmm (150-400) 06/29/16 05:50 MPV 7.8 fl 06/29/16 05:50 Neutrophils % 81.0 % (40.0-80.0) H 06/29/16 05:50 Lymphocytes % 10.2 % (20.0-50.0) L 06/29/16 05:50 Monocytes % 6.8 % (2.0-10.0) 06/29/16 05:50 Eosinophils % 1.7 % (0.0-5.0) 06/29/16 05:50 Basophils % 0.3 % (0.0-2.0) 06/29/16 05:50 Neutrophils (Manual) 84 % (40-80) H 06/27/16 17:52 Lymphocytes 10 % (20-50) L 06/27/16 17:52 Monocytes 6 % (2-10) 06/27/16 17:52 Platelet Estimate ADEQUATE (NORMAL) 06/27/16 17:52 Platelet Morphology NORMAL (NORMAL) 06/27/16 17:52 RBC Morph Micro Appear NORMAL (NORMAL) 06/27/16 17:52 Sodium 138 mEq/L (136-145) 06/29/16 05:50 Potassium 3.3 mEq/L (3.5-5.1) L 06/29/16 05:50 Chloride 107 mEq/L (98-107) 06/29/16 05:50 Carbon Dioxide 24.4 mEq/L (21.0-31.0) 06/29/16 05:50 Anion Gap 9.9 (7.0-16.0) 06/29/16 05:50 BUN 10 mg/dL (7-25) 06/29/16 05:50 Creatinine 0.9 mg/dL (0.6-1.2) 06/29/16 05:50 Est GFR ( Amer) TNP 06/29/16 05:50 Est GFR (Non-Af Amer) TNP 06/29/16 05:50 BUN/Creatinine Ratio 11.1 06/29/16 05:50 Glucose 111 mg/dL (70-105) H 06/29/16 05:50 Hemoglobin A1c % 6.1 % (4.0-6.0) H 06/28/16 04:51 Whole Bld Lactic Acid 1.44 mmol/L (0.60-1.99) 06/27/16 18:21 Calcium 8.9 mg/dL (8.6-10.3) 06/29/16 05:50 Magnesium 2.0 mg/dL (1.9-2.7) 06/29/16 05:50 Total Bilirubin 0.9 mg/dL (0.3-1.0) 06/27/16 17:52 AST 21 U/L (13-39) 06/27/16 17:52 ALT 20 U/L (7-52) 06/27/16 17:52 Alkaline Phosphatase 48 U/L (34-104) 06/27/16 17:52 Ammonia 40 umol/L (16-53) 06/28/16 04:51 B-Natriuretic Peptide 119.0 pg/mL (5.0-100.0) H 06/28/16 04:51 Total Protein 7.0 gm/dL (6.0-8.3) 06/27/16 17:52 Albumin 3.7 gm/dL (3.7-5.3) 06/27/16 17:52 Globulin 3.3 gm/dL 06/27/16 17:52 Albumin/Globulin Ratio 1.1 (1.0-1.8) 06/27/16 17:52 TSH 0.64 uIU/ml (0.34-5.60) 06/28/16 04:51 Urine Source CLEAN C 06/27/16 21:15 Urine Color YELLOW 06/27/16 21:15 Urine Clarity CLEAR (CLEAR) 06/27/16 21:15 Urine pH 7.0 06/27/16 21:15 Ur Specific [place] 1.010 (1.005-1.030) 06/27/16 21:15 Urine Protein NEGATIVE mg/dL (NEGATIVE) 06/27/16 21:15 Urine Glucose (UA) NEGATIVE mg/dL (NEGATIVE) 06/27/16 21:15 Urine Ketones NEGATIVE mg/dL (NEGATIVE) 06/27/16 21:15 Urine Blood NEGATIVE (NEGATIVE) 06/27/16 21:15 Urine Nitrate NEGATIVE (NEGATIVE) 06/27/16 21:15 Urine Bilirubin NEGATIVE (NEGATIVE) 06/27/16 21:15 Urine Urobilinogen 0.2 E.U./dL (0.2 - 1.0) 06/27/16 21:15 Ur Leukocyte Esterase NEGATIVE (NEGATIVE) 06/27/16 21:15 Urine RBC NONE SEEN /hpf (0-5) 06/27/16 21:15 Urine WBC 0-2 /hpf (0-5) 06/27/16 21:15 Ur Epithelial Cells RARE /lpf (FEW) 06/27/16 21:15 Urine Bacteria NONE SEEN /hpf (NONE SEEN) 06/27/16 21:15 - Physical Exam Vitals and I&O: Vital Signs Temp 98.1 F 06/29/16 08:00 Pulse 70 06/29/16 10:54 Resp 16 06/29/16 10:54 BP 166/79 06/29/16 08:00 Pulse Ox 97 06/29/16 10:54 Intake & Output 06/28/16 06/29/16 06/29/16 18:59 06:59 18:59 Intake Total 1550 250 Balance 1550 250 Weight (lbs) 123 lb 3.2 oz Intake: Intake, IV Amount 1050 50 Cefepime 1 gm In Dextrose 50 50 5% 50 ml @ 100 mls/hr IV Q12H [facility] Rx#:[id number] D5-0.45NS 1,000 ml @ 75 1000 mls/hr IV .[id number] [facility] Rx #:[id number] Oral 450 200 Other 50 Other: # Voids 5 3 # Bowel Movements 0 1 Active Medications: Current Medications Acetaminophen (Tylenol) 650 mg PO Q4HR PRN PRN Reason: Pain or Fever >101 Stop: 08/26/16 20:24 Last Admin: 06/28/16 20:48 Dose: 650 mg Albuterol Sulfate (Albuterol 2.5mg/3ml Neb Ud) 2.5 mg HHN QIDRT [facility] Stop: 08/26/16 20:59 Last Admin: 06/29/16 10:52 Dose: 2.5 mg Ascorbic Acid (Vitamin C) 500 mg PO DAILY [facility] Stop: 08/27/16 08:59 Last Admin: 06/29/16 09:11 Dose: 500 mg Clonidine HCl (Catapres) 0.1 mg PO Q6HR PRN PRN Reason: SBP GREATER THAN 160 Stop: 08/26/16 20:24 Guaifenesin (Robitussin) 200 mg PO Q4HR PRN PRN Reason: Cough or Congestion Stop: 08/26/16 20:24 Last Admin: 06/29/16 06:26 Dose: 200 mg Heparin Sodium (Porcine) (Heparin) 5,000 units SUBQ Q12HR [facility] Stop: 08/26/16 20:59 Last Admin: 06/29/16 09:12 Dose: 5,000 units Cefepime HCl 1 gm/ Dextrose 50 mls @ 100 mls/hr IV Q12H [facility] Stop: 08/26/16 20:59 Last Admin: 06/29/16 09:45 Dose: 100 mls/hr Dextrose/Sodium Chloride (D5-0.45ns) 1,000 mls @ 75 mls/hr IV .[id number] [facility] Stop: 08/26/16 20:29 Last Admin: 06/28/16 18:19 Dose: 75 mls/hr Ipratropium [place] (Atrovent Neb 0.5mg/2.5ml) 0.5 mg HHN Q2HR PRN PRN Reason: Shortness of Breath or Wheeze Stop: 08/26/16 20:24 Multivitamins/Vitamin C (Theragran) 1 tab PO DAILY [facility] Stop: 08/27/16 08:59 Last Admin: 06/29/16 09:11 Dose: 1 tab Ondansetron HCl (Zofran) 4 mg IV Q8H PRN PRN Reason: Nausea / Vomiting Stop: 08/26/16 20:24 Zolpidem Tartrate (Ambien) 10 mg PO HS PRN PRN Reason: Insomnia Stop: 08/26/16 20:24 General: weak, alert HEENT: NC/AT Neck: Supple Lungs: ronchi Cardiovascular: carlie (asymptomatic, at times in the mid 40's during rest ) Abdomen: soft non-tender, non-distended - Procedures Procedures: Procedures Procedure Code Date INJECT/INFUSE NEC 99.29 05/28/14 Internal Medicine Assmt/Plan - Assessment Assessment: fever sepsis syncope leukocytosis low na ri - Plan Plan: f/u labs pt eval monitor HR tele monitoring continue ivabx bronchodilators cpm Nutritional Asmnt/Malnutr-PDOC - Dietary Evaluation Malnutrition Findings (Please click <Entered> for more info): Nutritional Asmnt/Malnutrition Start: 06/28/16 12: 04 Text: Status: Complete Freq: Document 06/28/16 12:04 [facility] (Rec: 06/28/16 12:12 [facility] [id number]) Nutritional Asmnt/Malnutrition Patient General Information Nutritional Screening High Risk Screening Diagnosis Sepsis, fever, syncope (per reason for visit) Pertinent Medical Hx/Surgical Hx 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 Pt was awake and alert during time of visit; pt is a good historian . RD offered diet education but pt declined at this time. Pt appears well nourished with no signs of muscle or fat depletion. RD weighed pt via bedscale. Upward wt trend, wt gain of 6# in the last year. Pt surprised but also admits she has been snacking a lot. Current Diet Order/ Nutrition Support Low sodium Patient / S.O Can Pertinent Medications Vitamin C, Cefepime, D5-0.45 ns, Theragran, Zofran Pertinent Labs (06/28) Glucose (fasting) 131H, A1C 6.1H Nutritional Hx/Data Height 4 ft 9 in Height (Calculated Centimeters) 144.8 Current Weight (lbs) 123 lb 3.2 oz Weight (Calculated Kilograms) 55.9 Weight (Calculated Grams) 76618.6 Usual body Weight (lbs) 117 % Usual Body Weight 105 Recent Weight Change Yes Weight Status Overweight GI Symptoms GI Symptoms None Food Allergies No Cultural/Ethnic/Buddhist Belief No cultural preferences provided but pt reports trying to eat less meat and more salads. Usual diet at home Low fat/low sodium diet, 3 meals/day with snacks Skin Integrity/Comment: Luis 20. Skin intact. Current %PO Good (75-100%) Estimated Nutritional Goals BEE in Kcals: Using Current wt Calories/Kcals/Kg Based on CBW 56 kg with consideration of wt gain, sepsis Kcals Calculated 1551-2411 kcals/day (28-33 kcals/kg) Protein: Using Current wt Protein g/kg: Based on CBW 56 kg with consideration of wt gain, sepsis Protein Calculated 56-70 gm/day (1-1.25 gm/kg) Fluid: ml 2930-9278 ml/day (30-35 ml/kg CBW) Nutritional Problem 1. Problem Problem Overweight related to Etiology increased energy intake vs energy expenditure as evidenced by Signs/Symptoms: overwt BMI 26.7 kg/m2 and unintentional wt gain of 6#. Malnutrition Alert Is there a minimum of two criteria No selected? Query Text:Check all the applicable criteria. A minimum of two criteria are recommended for diagnosis of either severe or non-severe malnutrition. Malnutrition Related to Morbid Obesity Malnutrition related to morbid obesity No Intervention/Recommendation Comments 1. Continue with current diet. Diet and PO intake is adequate to meet estimated nutritional needs. 2. Educate on wt management, as needed. Expected Outcomes/Goals Expected Outcomes/Goals Have pt meet at least 75% of estimated nutritional needs for stable wt. Physician Parameters for PEM Serum Albumin (g/dl) 3.5 - 5.0 (Normal) 06/28/16 12:12 Dietitian Notes by Nelia Johnson Nutrition Note Initial Nutrition Assessment completed by Nelia Johnson on 06/28/16. Please refer to nutrition assessment under Patient Care tab of EMR. Nutrition Interventions: 1. Continue with current diet. Diet and PO intake is adequate to meet estimated nutritional needs. 2. Educate on wt management, as needed. F/U in 3-5 days as Moderate risk, 07/01-07/03. Initialized on 06/28/16 12:12 - END OF NOTE
[2016-06-30] MEDS: D5-0.45NS 1,000 ML IV SCH (00:30)
[2016-06-30 06:13] LABS: FOLIC ACID >20.0 ng/mL (>3.0)
[2016-06-30 07:21] LABS: % BASOPHILS 0.2 % (0.0-2.0); % EOSINOPHILS 3.7 % (0.0-5.0); % LYMPHOCYTES 13.7 % (20.0-50.0); % MONOCYTES 7.6 % (2.0-10.0); % NEUTROPHILS 74.8 % (40.0-80.0); HEMATOCRIT 37.3 % (35.0-45.0); HEMOGLOBIN 12.3 gm/dL (11.7-16.1); MEAN CELL VOLUME 86.4 fl (81-100); MEAN CORPUSCULAR HEMOGLOBIN 28.5 pg (27.0-31.0); MEAN CORPUSCULAR HGB CONC 33.1 pg (28.0-36.0); MEAN PLATELET VOLUME 8.4 fl; NEUTROPHILE ABSOLUTE 8.7 Th/cmm (1.8-8.0); PLATELET COUNT 254 Th/cmm (150-400); RED BLOOD COUNT 4.32 Mil/cmm (3.80-5.20); RED CELL DISTRIBUTION WIDTH 13.6 % (11.5-20.0)
[2016-06-30 07:41] LABS: WHITE BLOOD COUNT 11.6 Th/cmm (4.8-10.8)
[2016-06-30 07:43] LABS: BUN - UREA NITROGEN 13 mg/dL (7-25); BUN/CREATININE RATIO 14.4; CALCIUM SERUM 9.4 mg/dL (8.6-10.3); CARBON DIOXIDE 25.6 mEq/L (21.0-31.0); CHLORIDE 105 mEq/L (98-107); CREATININE - SERUM 0.9 mg/dL (0.6-1.2); GLUCOSE 105 mg/dL (70-105); POTASSIUM SERUM 3.6 mEq/L (3.5-5.1); SODIUM SERUM 140 mEq/L (136-145)
[2016-06-30] MEDS: Albuterol Nebulizer 2.5mg/3mL HHN SCH ×4 (09:00→20:12)
[2016-06-30] MEDS: Multivitamin Tab PO SCH (09:41)
--- NOTE | 2016-06-30 11:39 | Internal Medicine Prog Note ---
Internal Medicine Subjective - Subjective Service Date: 06/30/16 (awake, alert, just came back from CT still noted with productive cough) Internal Medicine Objective - Results Result Diagrams: 06/30/16 06:15 06/30/16 06:15 Recent Labs: Laboratory Last Values WBC 11.6 Th/cmm (4.8-10.8) H D 06/30/16 06:15 RBC 4.32 Mil/cmm (3.80-5.20) 06/30/16 06:15 Hgb 12.3 gm/dL (11.7-16.1) 06/30/16 06:15 Hct 37.3 % (35.0-45.0) 06/30/16 06:15 MCV 86.4 fl (81-100) 06/30/16 06:15 MCH 28.5 pg (27.0-31.0) 06/30/16 06:15 MCHC Differential 33.1 pg (28.0-36.0) 06/30/16 06:15 RDW 13.6 % (11.5-20.0) 06/30/16 06:15 Plt Count 254 Th/cmm (150-400) 06/30/16 06:15 MPV 8.4 fl 06/30/16 06:15 Neutrophils % 74.8 % (40.0-80.0) 06/30/16 06:15 Lymphocytes % 13.7 % (20.0-50.0) L 06/30/16 06:15 Monocytes % 7.6 % (2.0-10.0) 06/30/16 06:15 Eosinophils % 3.7 % (0.0-5.0) 06/30/16 06:15 Basophils % 0.2 % (0.0-2.0) 06/30/16 06:15 Neutrophils (Manual) 84 % (40-80) H 06/27/16 17:52 Lymphocytes 10 % (20-50) L 06/27/16 17:52 Monocytes 6 % (2-10) 06/27/16 17:52 Platelet Estimate ADEQUATE (NORMAL) 06/27/16 17:52 Platelet Morphology NORMAL (NORMAL) 06/27/16 17:52 RBC Morph Micro Appear NORMAL (NORMAL) 06/27/16 17:52 Sodium 140 mEq/L (136-145) 06/30/16 06:15 Potassium 3.6 mEq/L (3.5-5.1) 06/30/16 06:15 Chloride 105 mEq/L (98-107) 06/30/16 06:15 Carbon Dioxide 25.6 mEq/L (21.0-31.0) 06/30/16 06:15 Anion Gap 13.0 (7.0-16.0) 06/30/16 06:15 BUN 13 mg/dL (7-25) 06/30/16 06:15 Creatinine 0.9 mg/dL (0.6-1.2) 06/30/16 06:15 Est GFR ( Amer) TNP 06/30/16 06:15 Est GFR (Non-Af Amer) TNP 06/30/16 06:15 BUN/Creatinine Ratio 14.4 06/30/16 06:15 Glucose 105 mg/dL (70-105) 06/30/16 06:15 Hemoglobin A1c % 6.1 % (4.0-6.0) H 06/28/16 04:51 Whole Bld Lactic Acid 1.44 mmol/L (0.60-1.99) 06/27/16 18:21 Calcium 9.4 mg/dL (8.6-10.3) 06/30/16 06:15 Magnesium 2.0 mg/dL (1.9-2.7) 06/29/16 05:50 Total Bilirubin 0.9 mg/dL (0.3-1.0) 06/27/16 17:52 AST 21 U/L (13-39) 06/27/16 17:52 ALT 20 U/L (7-52) 06/27/16 17:52 Alkaline Phosphatase 48 U/L (34-104) 06/27/16 17:52 Ammonia 40 umol/L (16-53) 06/28/16 04:51 B-Natriuretic Peptide 119.0 pg/mL (5.0-100.0) H 06/28/16 04:51 Total Protein 7.0 gm/dL (6.0-8.3) 06/27/16 17:52 Albumin 3.7 gm/dL (3.7-5.3) 06/27/16 17:52 Globulin 3.3 gm/dL 06/27/16 17:52 Albumin/Globulin Ratio 1.1 (1.0-1.8) 06/27/16 17:52 Vitamin B12 512 pg/mL (211-946) 06/28/16 04:51 Folic Acid >20.0 ng/mL (>3.0) 06/28/16 04:51 TSH 0.64 uIU/ml (0.34-5.60) 06/28/16 04:51 Urine Source CLEAN C 06/27/16 21:15 Urine Color YELLOW 06/27/16 21:15 Urine Clarity CLEAR (CLEAR) 06/27/16 21:15 Urine pH 7.0 06/27/16 21:15 Ur Specific [place] 1.010 (1.005-1.030) 06/27/16 21:15 Urine Protein NEGATIVE mg/dL (NEGATIVE) 06/27/16 21:15 Urine Glucose (UA) NEGATIVE mg/dL (NEGATIVE) 06/27/16 21:15 Urine Ketones NEGATIVE mg/dL (NEGATIVE) 06/27/16 21:15 Urine Blood NEGATIVE (NEGATIVE) 06/27/16 21:15 Urine Nitrate NEGATIVE (NEGATIVE) 06/27/16 21:15 Urine Bilirubin NEGATIVE (NEGATIVE) 06/27/16 21:15 Urine Urobilinogen 0.2 E.U./dL (0.2 - 1.0) 06/27/16 21:15 Ur Leukocyte Esterase NEGATIVE (NEGATIVE) 06/27/16 21:15 Urine RBC NONE SEEN /hpf (0-5) 06/27/16 21:15 Urine WBC 0-2 /hpf (0-5) 06/27/16 21:15 Ur Epithelial Cells RARE /lpf (FEW) 06/27/16 21:15 Urine Bacteria NONE SEEN /hpf (NONE SEEN) 06/27/16 21:15 - Physical Exam Vitals and I&O: Vital Signs Temp 98.2 F 06/30/16 04:00 Pulse 66 06/30/16 09:41 Resp 20 06/30/16 04:00 BP 148/62 06/30/16 09:41 Pulse Ox 97 06/30/16 04:00 Intake & Output 06/29/16 06/30/16 06/30/16 18:59 06:59 18:59 Intake Total 1770 250 Balance 1770 250 Intake: Intake, IV Amount 1050 50 Cefepime 1 gm In Dextrose 50 50 5% 50 ml @ 100 mls/hr IV Q12H [facility] Rx#:[id number] D5-0.45NS 1,000 ml @ 75 1000 mls/hr IV .[id number] [facility] Rx #:[id number] Oral 720 200 Other: # Voids 4 4 # Bowel Movements 1 Active Medications: Current Medications Acetaminophen (Tylenol) 650 mg PO Q4HR PRN PRN Reason: Pain or Fever >101 Stop: 08/26/16 20:24 Last Admin: 06/29/16 21:23 Dose: 650 mg Albuterol Sulfate (Albuterol 2.5mg/3ml Neb Ud) 2.5 mg HHN QIDRT [facility] Stop: 08/26/16 20:59 Last Admin: 06/30/16 09:00 Dose: 2.5 mg Ascorbic Acid (Vitamin C) 500 mg PO DAILY [facility] Stop: 08/27/16 08:59 Last Admin: 06/30/16 09:41 Dose: 500 mg Benazepril HCl (Lotensin) 10 mg PO BID [facility] Stop: 08/28/16 16:59 Last Admin: 06/30/16 09:41 Dose: 10 mg Clonidine HCl (Catapres) 0.1 mg PO Q6HR PRN PRN Reason: SBP GREATER THAN 160 Stop: 08/26/16 20:24 Guaifenesin (Robitussin) 200 mg PO Q4HR PRN PRN Reason: Cough or Congestion Stop: 08/26/16 20:24 Last Admin: 06/29/16 21:24 Dose: 200 mg Heparin Sodium (Porcine) (Heparin) 5,000 units SUBQ Q12HR [facility] Stop: 08/26/16 20:59 Last Admin: 06/30/16 09:43 Dose: 5,000 units Cefepime HCl 1 gm/ Dextrose 50 mls @ 100 mls/hr IV Q12H [facility] Stop: 08/26/16 20:59 Last Admin: 06/30/16 09:42 Dose: 100 mls/hr Dextrose/Sodium Chloride (D5-0.45ns) 1,000 mls @ 75 mls/hr IV .[id number] [facility] Stop: 08/26/16 20:29 Last Admin: 06/30/16 00:30 Dose: 75 mls/hr Ipratropium [place] (Atrovent Neb 0.5mg/2.5ml) 0.5 mg HHN Q2HR PRN PRN Reason: Shortness of Breath or Wheeze Stop: 08/26/16 20:24 Multivitamins/Vitamin C (Theragran) 1 tab PO DAILY [facility] Stop: 08/27/16 08:59 Last Admin: 06/30/16 09:41 Dose: 1 tab Ondansetron HCl (Zofran) 4 mg IV Q8H PRN PRN Reason: Nausea / Vomiting Stop: 08/26/16 20:24 Zolpidem Tartrate (Ambien) 10 mg PO HS PRN PRN Reason: Insomnia Stop: 08/26/16 20:24 General: alert HEENT: NC/AT, PERRLA Neck: Supple Lungs: CTAB, ronchi Cardiovascular: RRR, Normal S1, Normal S2, without murmur Abdomen: soft non-tender, non-distended Extremities: clear - Procedures Procedures: Procedures Procedure Code Date INJECT/INFUSE NEC 99.29 05/28/14 Internal Medicine Assmt/Plan - Assessment Assessment: fever sepsis syncope leukocytosis low na ri - Plan Plan: awaiting for results CT chest monitor HR tele monitoring continue ivabx bronchodilators cpm Nutritional Asmnt/Malnutr-PDOC - Dietary Evaluation Malnutrition Findings (Please click <Entered> for more info): Nutritional Asmnt/Malnutrition Start: 06/28/16 12: 04 Text: Status: Complete Freq: Document 06/28/16 12:04 [facility] (Rec: 06/28/16 12:12 [facility] [id number]) Nutritional Asmnt/Malnutrition Patient General Information Nutritional Screening High Risk Screening Diagnosis Sepsis, fever, syncope (per reason for visit) Pertinent Medical Hx/Surgical Hx 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 Pt was awake and alert during time of visit; pt is a good historian . RD offered diet education but pt declined at this time. Pt appears well nourished with no signs of muscle or fat depletion. RD weighed pt via bedscale. Upward wt trend, wt gain of 6# in the last year. Pt surprised but also admits she has been snacking a lot. Current Diet Order/ Nutrition Support Low sodium Patient / S.O Can Pertinent Medications Vitamin C, Cefepime, D5-0.45 ns, Theragran, Zofran Pertinent Labs (06/28) Glucose (fasting) 131H, A1C 6.1H Nutritional Hx/Data Height 4 ft 9 in Height (Calculated Centimeters) 144.8 Current Weight (lbs) 123 lb 3.2 oz Weight (Calculated Kilograms) 55.9 Weight (Calculated Grams) 24795.6 Usual body Weight (lbs) 117 % Usual Body Weight 105 Recent Weight Change Yes Weight Status Overweight GI Symptoms GI Symptoms None Food Allergies No Cultural/Ethnic/Anglican Belief No cultural preferences provided but pt reports trying to eat less meat and more salads. Usual diet at home Low fat/low sodium diet, 3 meals/day with snacks Skin Integrity/Comment: Luis 20. Skin intact. Current %PO Good (75-100%) Estimated Nutritional Goals BEE in Kcals: Using Current wt Calories/Kcals/Kg Based on CBW 56 kg with consideration of wt gain, sepsis Kcals Calculated 5527-0491 kcals/day (28-33 kcals/kg) Protein: Using Current wt Protein g/kg: Based on CBW 56 kg with consideration of wt gain, sepsis Protein Calculated 56-70 gm/day (1-1.25 gm/kg) Fluid: ml 8915-2055 ml/day (30-35 ml/kg CBW) Nutritional Problem 1. Problem Problem Overweight related to Etiology increased energy intake vs energy expenditure as evidenced by Signs/Symptoms: overwt BMI 26.7 kg/m2 and unintentional wt gain of 6#. Malnutrition Alert Is there a minimum of two criteria No selected? Query Text:Check all the applicable criteria. A minimum of two criteria are recommended for diagnosis of either severe or non-severe malnutrition. Malnutrition Related to Morbid Obesity Malnutrition related to morbid obesity No Intervention/Recommendation Comments 1. Continue with current diet. Diet and PO intake is adequate to meet estimated nutritional needs. 2. Educate on wt management, as needed. Expected Outcomes/Goals Expected Outcomes/Goals Have pt meet at least 75% of estimated nutritional needs for stable wt. Physician Parameters for PEM Serum Albumin (g/dl) 3.5 - 5.0 (Normal) 06/28/16 12:12 Dietitian Notes by Nelia Johnson Nutrition Note Initial Nutrition Assessment completed by Nelia Johnson on 06/28/16. Please refer to nutrition assessment under Patient Care tab of EMR. Nutrition Interventions: 1. Continue with current diet. Diet and PO intake is adequate to meet estimated nutritional needs. 2. Educate on wt management, as needed. F/U in 3-5 days as Moderate risk, 07/01-07/03. Initialized on 06/28/16 12:12 - END OF NOTE
[2016-06-30] MEDS: guaiFENesin 200 MG/10 ML UDC PO PRN (11:40)
--- NOTE | 2016-06-30 12:35 | Diagnostic Imaging Report ---
CT Chest without IV contrast HISTORY: Pneumonia COMPARISON: Chest x-ray 06/28/2016. Technique: Axial images were obtained from the base of the neck to the upper abdomen without administration of IV contrast. Coronal reconstructions were made. Total DLP 190, CTD I 5.5 Findings: Exam is limited due to lack of IV contrast. Few borderline prominent mediastinal lymph nodes are noted, nonspecific. The ascending aorta measures up to 3 cm. Heart size is at the upper limits of normal. No pericardial effusion. Moderate atherosclerotic vascular disease is noted. The lung farmer demonstrate hypoventilatory and atelectatic changes with few groundglass opacities and patchy infiltrates at greatest along the lower lung zones. Left basal consolidative changes are also seen surrounding the aorta. Small bilateral pleural effusions are also noted. The upper abdomen demonstrates gallstones. High density lesions of the bilateral kidneys are noted measuring up to 1.2 cm. 2 cm right renal cyst is noted. Degenerative changes of the spine are noted. There is mild chronic appearing compression deformity of T12. IMPRESSION: Scattered groundglass opacities of the lungs with multifocal infiltrates and bibasal consolidative changes, greatest along the left lung base surrounding the aorta. Small bilateral effusions are also noted. Findings may be due to mild CHF with possible superimposed pneumonia. Please correlate clinically. Mild atherosclerotic vascular disease Borderline prominent mediastinal lymph nodes, nonspecific Gallstones Right renal cyst and additional high density small renal lesions which may represent hemorrhagic cysts. Consider further assessment with short-term follow-up ultrasound.
[2016-06-30] MEDS ORDERED: D5-0.45NS 1,000 ML IV SCH (13:37)
[2016-07-01 06:38] LABS: % BASOPHILS 0.5 % (0.0-2.0); % EOSINOPHILS 5.5 % (0.0-5.0); % LYMPHOCYTES 19.8 % (20.0-50.0); % MONOCYTES 9.3 % (2.0-10.0); % NEUTROPHILS 64.9 % (40.0-80.0); HEMATOCRIT 35.5 % (35.0-45.0); HEMOGLOBIN 11.9 gm/dL (11.7-16.1); MEAN CELL VOLUME 85.5 fl (81-100); MEAN CORPUSCULAR HEMOGLOBIN 28.7 pg (27.0-31.0); MEAN CORPUSCULAR HGB CONC 33.6 pg (28.0-36.0); MEAN PLATELET VOLUME 8.1 fl; PLATELET COUNT 279 Th/cmm (150-400); RED BLOOD COUNT 4.15 Mil/cmm (3.80-5.20); RED CELL DISTRIBUTION WIDTH 13.2 % (11.5-20.0)
[2016-07-01 06:50] LABS: ANION GAP 8.5 (7.0-16.0); BUN - UREA NITROGEN 14 mg/dL (7-25); BUN/CREATININE RATIO 15.6; CALCIUM SERUM 9.1 mg/dL (8.6-10.3); CARBON DIOXIDE 24.1 mEq/L (21.0-31.0); CHLORIDE 106 mEq/L (98-107); CREATININE - SERUM 0.9 mg/dL (0.6-1.2); GLUCOSE 106 mg/dL (70-105); POTASSIUM SERUM 3.6 mEq/L (3.5-5.1); SODIUM SERUM 135 mEq/L (136-145)
[2016-07-01 06:51] LABS: WHITE BLOOD COUNT 9.1 Th/cmm (4.8-10.8)
[2016-07-01] MEDS: Albuterol Nebulizer 2.5mg/3mL HHN SCH ×3 (07:12→14:34)
[2016-07-01] MEDS: Multivitamin Tab PO SCH (09:13)
--- NOTE | 2016-07-01 10:50 | Internal Medicine Prog Note ---
Internal Medicine Subjective - Subjective Service Date: 07/01/16 Patient seen and examined:: with staff Patient is:: awake Per staff patient is:: no adverse event Internal Medicine Objective - Results Result Diagrams: 07/01/16 06:00 07/01/16 06:00 Recent Labs: Laboratory Last Values WBC 9.1 Th/cmm (4.8-10.8) D 07/01/16 06:00 RBC 4.15 Mil/cmm (3.80-5.20) 07/01/16 06:00 Hgb 11.9 gm/dL (11.7-16.1) 07/01/16 06:00 Hct 35.5 % (35.0-45.0) 07/01/16 06:00 MCV 85.5 fl (81-100) 07/01/16 06:00 MCH 28.7 pg (27.0-31.0) 07/01/16 06:00 MCHC Differential 33.6 pg (28.0-36.0) 07/01/16 06:00 RDW 13.2 % (11.5-20.0) 07/01/16 06:00 Plt Count 279 Th/cmm (150-400) 07/01/16 06:00 MPV 8.1 fl 07/01/16 06:00 Neutrophils % 64.9 % (40.0-80.0) 07/01/16 06:00 Lymphocytes % 19.8 % (20.0-50.0) L 07/01/16 06:00 Monocytes % 9.3 % (2.0-10.0) 07/01/16 06:00 Eosinophils % 5.5 % (0.0-5.0) H 07/01/16 06:00 Basophils % 0.5 % (0.0-2.0) 07/01/16 06:00 Neutrophils (Manual) 84 % (40-80) H 06/27/16 17:52 Lymphocytes 10 % (20-50) L 06/27/16 17:52 Monocytes 6 % (2-10) 06/27/16 17:52 Platelet Estimate ADEQUATE (NORMAL) 06/27/16 17:52 Platelet Morphology NORMAL (NORMAL) 06/27/16 17:52 RBC Morph Micro Appear NORMAL (NORMAL) 06/27/16 17:52 Sodium 135 mEq/L (136-145) L 07/01/16 06:00 Potassium 3.6 mEq/L (3.5-5.1) 07/01/16 06:00 Chloride 106 mEq/L (98-107) 07/01/16 06:00 Carbon Dioxide 24.1 mEq/L (21.0-31.0) 07/01/16 06:00 Anion Gap 8.5 (7.0-16.0) 07/01/16 06:00 BUN 14 mg/dL (7-25) 07/01/16 06:00 Creatinine 0.9 mg/dL (0.6-1.2) 07/01/16 06:00 Est GFR ( Amer) TNP 07/01/16 06:00 Est GFR (Non-Af Amer) TNP 07/01/16 06:00 BUN/Creatinine Ratio 15.6 07/01/16 06:00 Glucose 106 mg/dL (70-105) H 07/01/16 06:00 Hemoglobin A1c % 6.1 % (4.0-6.0) H 06/28/16 04:51 Whole Bld Lactic Acid 1.44 mmol/L (0.60-1.99) 06/27/16 18:21 Calcium 9.1 mg/dL (8.6-10.3) 07/01/16 06:00 Magnesium 1.9 mg/dL (1.9-2.7) 07/01/16 06:00 Total Bilirubin 0.9 mg/dL (0.3-1.0) 06/27/16 17:52 AST 21 U/L (13-39) 06/27/16 17:52 ALT 20 U/L (7-52) 06/27/16 17:52 Alkaline Phosphatase 48 U/L (34-104) 06/27/16 17:52 Ammonia 40 umol/L (16-53) 06/28/16 04:51 B-Natriuretic Peptide 97.6 pg/mL (5.0-100.0) 07/01/16 06:00 Total Protein 7.0 gm/dL (6.0-8.3) 06/27/16 17:52 Albumin 3.7 gm/dL (3.7-5.3) 06/27/16 17:52 Globulin 3.3 gm/dL 06/27/16 17:52 Albumin/Globulin Ratio 1.1 (1.0-1.8) 06/27/16 17:52 Vitamin B12 512 pg/mL (211-946) 06/28/16 04:51 Folic Acid >20.0 ng/mL (>3.0) 06/28/16 04:51 TSH 0.64 uIU/ml (0.34-5.60) 06/28/16 04:51 Urine Source CLEAN C 06/27/16 21:15 Urine Color YELLOW 06/27/16 21:15 Urine Clarity CLEAR (CLEAR) 06/27/16 21:15 Urine pH 7.0 06/27/16 21:15 Ur Specific [place] 1.010 (1.005-1.030) 06/27/16 21:15 Urine Protein NEGATIVE mg/dL (NEGATIVE) 06/27/16 21:15 Urine Glucose (UA) NEGATIVE mg/dL (NEGATIVE) 06/27/16 21:15 Urine Ketones NEGATIVE mg/dL (NEGATIVE) 06/27/16 21:15 Urine Blood NEGATIVE (NEGATIVE) 06/27/16 21:15 Urine Nitrate NEGATIVE (NEGATIVE) 06/27/16 21:15 Urine Bilirubin NEGATIVE (NEGATIVE) 06/27/16 21:15 Urine Urobilinogen 0.2 E.U./dL (0.2 - 1.0) 06/27/16 21:15 Ur Leukocyte Esterase NEGATIVE (NEGATIVE) 06/27/16 21:15 Urine RBC NONE SEEN /hpf (0-5) 06/27/16 21:15 Urine WBC 0-2 /hpf (0-5) 06/27/16 21:15 Ur Epithelial Cells RARE /lpf (FEW) 06/27/16 21:15 Urine Bacteria NONE SEEN /hpf (NONE SEEN) 06/27/16 21:15 - Physical Exam Vitals and I&O: Vital Signs Temp 99.8 F 07/01/16 04:00 Pulse 61 07/01/16 09:12 Resp 20 07/01/16 07:12 BP 154/75 07/01/16 09:12 Pulse Ox 95 07/01/16 07:12 Intake & Output 06/30/16 07/01/16 07/01/16 18:59 06:59 18:59 Intake Total 50 290 Balance 50 290 Intake: Intake, IV Amount 50 50 Cefepime 1 gm In Dextrose 50 50 5% 50 ml @ 100 mls/hr IV Q12H [facility] Rx#:[id number] Oral 240 Other: # Voids 3 Active Medications: Current Medications Acetaminophen (Tylenol) 650 mg PO Q4HR PRN PRN Reason: Pain or Fever >101 Stop: 08/26/16 20:24 Last Admin: 06/29/16 21:23 Dose: 650 mg Albuterol Sulfate (Albuterol 2.5mg/3ml Neb Ud) 2.5 mg HHN QIDRT [facility] Stop: 08/26/16 20:59 Last Admin: 07/01/16 07:12 Dose: 2.5 mg Ascorbic Acid (Vitamin C) 500 mg PO DAILY [facility] Stop: 08/27/16 08:59 Last Admin: 07/01/16 09:12 Dose: 500 mg Benazepril HCl (Lotensin) 10 mg PO BID [facility] Stop: 08/28/16 16:59 Last Admin: 07/01/16 09:12 Dose: 10 mg Clonidine HCl (Catapres) 0.1 mg PO Q6HR PRN PRN Reason: SBP GREATER THAN 160 Stop: 08/26/16 20:24 Guaifenesin (Robitussin) 200 mg PO Q4HR PRN PRN Reason: Cough or Congestion Stop: 08/26/16 20:24 Last Admin: 06/30/16 11:40 Dose: 200 mg Guaifenesin (Mucinex) 600 mg PO Q12HR PRN PRN Reason: Cough or Congestion Stop: 08/29/16 13:37 Heparin Sodium (Porcine) (Heparin) 5,000 units SUBQ Q12HR [facility] Stop: 08/26/16 20:59 Last Admin: 07/01/16 09:13 Dose: 5,000 units Cefepime HCl 1 gm/ Dextrose 50 mls @ 100 mls/hr IV Q12H [facility] Stop: 08/26/16 20:59 Last Admin: 07/01/16 09:13 Dose: 100 mls/hr Dextrose/Sodium Chloride (D5-0.45ns) 1,000 mls @ 50 mls/hr IV .Q20H [facility] Stop: 08/29/16 13:36 Last Admin: 06/30/16 18:27 Dose: 50 mls/hr Ipratropium [place] (Atrovent Neb 0.5mg/2.5ml) 0.5 mg HHN Q2HR PRN PRN Reason: Shortness of Breath or Wheeze Stop: 08/26/16 20:24 Multivitamins/Vitamin C (Theragran) 1 tab PO DAILY [facility] Stop: 08/27/16 08:59 Last Admin: 07/01/16 09:13 Dose: 1 tab Ondansetron HCl (Zofran) 4 mg IV Q8H PRN PRN Reason: Nausea / Vomiting Stop: 08/26/16 20:24 Zolpidem Tartrate (Ambien) 10 mg PO HS PRN PRN Reason: Insomnia Stop: 08/26/16 20:24 General: alert HEENT: NC/AT, PERRLA Neck: Supple Lungs: CTAB Cardiovascular: RRR, Normal S1, Normal S2, without murmur Abdomen: soft non-tender, non-distended, positive bowel sound Extremities: clear Neurological: no change - Procedures Procedures: Procedures Procedure Code Date INJECT/INFUSE NEC 99.29 05/28/14 Internal Medicine Assmt/Plan - Assessment Assessment: fever sepsis syncope leukocytosis low na ri - Plan Plan: monitor HR tele monitoring continue ivabx bronchodilators cpm Nutritional Asmnt/Malnutr-PDOC - Dietary Evaluation Malnutrition Findings (Please click <Entered> for more info): Nutritional Asmnt/Malnutrition Start: 06/28/16 12: 04 Text: Status: Complete Freq: Document 06/28/16 12:04 [facility] (Rec: 06/28/16 12:12 [facility] [id number]) Nutritional Asmnt/Malnutrition Patient General Information Nutritional Screening High Risk Screening Diagnosis Sepsis, fever, syncope (per reason for visit) Pertinent Medical Hx/Surgical Hx 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 Pt was awake and alert during time of visit; pt is a good historian . RD offered diet education but pt declined at this time. Pt appears well nourished with no signs of muscle or fat depletion. RD weighed pt via bedscale. Upward wt trend, wt gain of 6# in the last year. Pt surprised but also admits she has been snacking a lot. Current Diet Order/ Nutrition Support Low sodium Patient / S.O Can Pertinent Medications Vitamin C, Cefepime, D5-0.45 ns, Theragran, Zofran Pertinent Labs (06/28) Glucose (fasting) 131H, A1C 6.1H Nutritional Hx/Data Height 4 ft 9 in Height (Calculated Centimeters) 144.8 Current Weight (lbs) 123 lb 3.2 oz Weight (Calculated Kilograms) 55.9 Weight (Calculated Grams) 38855.6 Usual body Weight (lbs) 117 % Usual Body Weight 105 Recent Weight Change Yes Weight Status Overweight GI Symptoms GI Symptoms None Food Allergies No Cultural/Ethnic/Buddhist Belief No cultural preferences provided but pt reports trying to eat less meat and more salads. Usual diet at home Low fat/low sodium diet, 3 meals/day with snacks Skin Integrity/Comment: Luis 20. Skin intact. Current %PO Good (75-100%) Estimated Nutritional Goals BEE in Kcals: Using Current wt Calories/Kcals/Kg Based on CBW 56 kg with consideration of wt gain, sepsis Kcals Calculated 3846-5446 kcals/day (28-33 kcals/kg) Protein: Using Current wt Protein g/kg: Based on CBW 56 kg with consideration of wt gain, sepsis Protein Calculated 56-70 gm/day (1-1.25 gm/kg) Fluid: ml 6344-4769 ml/day (30-35 ml/kg CBW) Nutritional Problem 1. Problem Problem Overweight related to Etiology increased energy intake vs energy expenditure as evidenced by Signs/Symptoms: overwt BMI 26.7 kg/m2 and unintentional wt gain of 6#. Malnutrition Alert Is there a minimum of two criteria No selected? Query Text:Check all the applicable criteria. A minimum of two criteria are recommended for diagnosis of either severe or non-severe malnutrition. Malnutrition Related to Morbid Obesity Malnutrition related to morbid obesity No Intervention/Recommendation Comments 1. Continue with current diet. Diet and PO intake is adequate to meet estimated nutritional needs. 2. Educate on wt management, as needed. Expected Outcomes/Goals Expected Outcomes/Goals Have pt meet at least 75% of estimated nutritional needs for stable wt. Physician Parameters for PEM Serum Albumin (g/dl) 3.5 - 5.0 (Normal) 06/28/16 12:12 Dietitian Notes by Nelia Johnson Nutrition Note Initial Nutrition Assessment completed by Nelia Johnson on 06/28/16. Please refer to nutrition assessment under Patient Care tab of EMR. Nutrition Interventions: 1. Continue with current diet. Diet and PO intake is adequate to meet estimated nutritional needs. 2. Educate on wt management, as needed. F/U in 3-5 days as Moderate risk, 07/01-07/03. Initialized on 06/28/16 12:12 - END OF NOTE
--- NOTE | 2016-07-03 15:00 | Cardiology ---
ECHOCARDIOGRAM REPORT The patient of Dr. Bang. M-MODE: Echocardiogram Mitral valve, anterior leaflet of the mitral valve shows normal excursion, EF velocity. Posterior leaflet of mitral valve shows normal excursion. Left ventricular posterior wall shows increased thickness, normal excursion. Interventricular septum shows increased thickness, normal excursion, hypertrophy of the left ventricle, ejection fraction 55%. Left atrium enlarged, 4.4 cm. Aortic root shows normal dimension, normal excursion of aortic leaflets. CONCLUSION: Hypertrophy of the left ventricle, left atrial enlargement, ejection fraction 55%. 2D ECHO: Long axis view showed normal sized left ventricle with hypertrophy of the left ventricle. Left atrium enlarged. Aortic root shows normal dimension, normal excursion of aortic leaflets. Short axis view of mitral valve normal. Short axis view of aortic valve normal. Apical four chamber view showed normal sized left ventricle with hypertrophy of the left ventricle. Left atrium enlarged. Right ventricular cavity, right atrium normal. No pericardial effusion. CONCLUSION: Hypertrophy of the left ventricle, ejection fraction 55%, left atrial enlargement. Doppler study shows prominent A wave consistent with poor compliance of left ventricle, trace mitral regurgitation, tricuspid regurgitation, pulmonary regurgitation, aortic regurgitation. [facility]# [id number]
--- NOTE | 2016-08-02 09:40 | Discharge Summary ---
FINAL DIAGNOSES: Fever, sepsis, syncope, leukocytosis, hyponatremia, renal insufficiency, dehydration and hyperglycemia. HISTORY OF PRESENT ILLNESS: An 86-year-old female without significant past medical history and severe problems of health related to fever and feeling sweaty and dizzy. The patient was coughing for the last 3 days, reported subjective fever. The patient had a coughing spell this afternoon ____. The patient was brought by family member, saw in the ER by ____ and noted to have only high white count. PHYSICAL EXAMINATION: GENERAL: The patient is well developed and well nourished in no acute distress. VITAL SIGNS: Stable. HEENT: Head is normocephalic and atraumatic. NECK: Supple. No mass. LUNGS: Clear bilaterally. HEART: Regular rate and rhythm. ABDOMEN: Soft and nontender. HOSPITAL COURSE: During the hospital stay, the patient was admitted to the med/surg unit. The patient had a chest x-ray done and the impression was a suggestion of persistent ____ right lung base. A carotid ultrasound was done due to near syncope and the impression is mild bilateral atherosclerotic changes, slightly greater on the right side. The patient was kept on IV steroids and also empiric antibiotics and supplemental oxygen and bronchodilators. The patient complained of shortness of breath with CT of the chest was obtained. The impression is scattered ground glass opacities ____ focal infiltrates ____ consolidated changes ____ along the left lung base surrounding the aorta. The patient had a cardiac ____, a 2D echo done and the impression is ejection fraction of 55%. The patient was stable for discharge. CONDITION UPON DISCHARGE: Fair. DISPOSITION: The patient is going home. JOB# [id number]
== END 2016-07-01 15:15 | disposition home or self-care (01) | DRG 871 ==
LOC: ER 16:30 → TELE 19:25
PROVIDERS: ADMIT Internal Medicine; ATTEND Internal Medicine
DX: A41.9 Sepsis, unspecified organism (principal); J18.9 Pneumonia, unspecified organism; E87.1 Hypo-osmolality and hyponatremia; E86.0 Dehydration; R55 Syncope and collapse; R73.9 Hyperglycemia, unspecified; N28.9 Disorder of kidney and ureter, unspecified; W19.XXXA Unspecified fall, initial encounter; Y93.89 Activity, other specified; Y92.89 Other specified places as the place of occurrence of the external cause; Y99.8 Other external cause status
CPT/HCPCS: 36415-UA; 71010-TC; 71250-TC; 80048-TC; 80053-TC; 81001-TC; 82140-TC; 82607-90; 82746-90; 83036-90; 83605; 83735-TC; 83880-TC; 84443-TC; 85007-TC; 85025-TC; 85027-TC; 87070; 90779; 93005; 93880-TC; 94640; 94760; J0692; J1644; J7030; J7613; Z7610